=== PATIENT | female | born 1985 | race American Indian/Alaskan Native ===

== ENCOUNTER 2021-07-13 07:55 | Emergency (ER) | payer SELFPAY ==
[2021-07-13] MEDS ORDERED: HYDROcodone/ACETAMINOPHEN 5-325 MG TAB PO ONE (08:25)
--- NOTE | 2021-07-13 08:31 | Emergency Department Report ---
HPI - General Chief Complaint: Extremity Injury, Lower Time Seen by Provider: 07/13/21 08:18 - HPI HPI: MSE 5 Patient is a 36-year-old female present with chief complaint of right foot and ankle pain after fall. Patient states this morning she fell down 3 stairs injuring her right foot and ankle. Patient denies loss of consciousness. Patient only complains of pain in the right foot and ankle and gives her pain a score of 10/10. LMP 07/08/2021 ED Past Medical Hx - Past Medical History Previous Medical History?: No - Surgical History Past Surgical History?: No - Family History Family history: no significant - Social History Smoking Status: Current Every Day Smoker (1/3 pack/day) Substance Use Type: None (Denies illicit drug use), Alcohol (Occasional) - Medications Home Medications: Home Medications Medication Instructions Recorded Confirmed Last Taken Type traMADoL [Ultram] 50 mg PO Q6HR PRN #10 tablet 07/13/21 Unknown Rx ED Review of Systems ROS: Stated complaint: SPRUNG ANKLE Other details as noted in HPI Constitutional: no symptoms reported Respiratory: no symptoms reported Endocrine: no symptoms reported Musculoskeletal: arthralgia Physical Exam - Physical Exam Physical Exam: GENERAL: The patient is well-developed well-nourished female sitting in wheelchair. To be in moderate discomfort. [] HEENT: Normocephalic. Atraumatic. Extraocular motions are intact. Patient has moist mucous membranes. NECK: Supple. Trachea midline CHEST/LUNGS: There is no respiratory distress noted. HEART/CARDIOVASCULAR: Regular. There is no tachycardia. 2+ right DP SKIN: There is no rash. There is swelling to the proximal portion of the dorsal right foot. There is no diaphoresis. NEURO: The patient is awake, alert, and oriented. The patient is cooperative. The patient has no focal neurologic deficits. The patient has normal speech. GCS MUSCULOSKELETAL: There is tenderness to palpation over the proximal portion of the dorsum of the right foot. Is mild tenderness to palpation of bilateral malleoli of the right ankle. ED Medical Decision Making - Radiology Data Radiology results: report reviewed (Right foot x-ray, right ankle x-ray), image reviewed (Right foot x-ray, right ankle x-ray) interpreted by me: Right foot x-ray-no acute fracture, no dislocation Right ankle x-ray-no acute fracture, no dislocation [address] [address] XRay Report Signed Patient: EH TALBOT MR#: [id number] : 1985 Acct:[id number] Age/Sex: 36 / F ADM Date: 07/13/21 Loc: ED Attending Dr: Ordering Physician: SARAI BARRIOS MD Date of Service: 07/13/21 Procedure(s): XR foot 3+V RT Accession Number(s): [id number] cc: SARAI BARRIOS MD Fluoro Time In Minutes: RIGHT ANKLE 3 VIEWS INDICATION: Pain after fall down steps. COMPARISON: None. IMPRESSION: No acute osseous or soft tissue abnormality. No significant DJD. RIGHT FOOT 3 VIEWS INDICATION: Pain after fall down steps. COMPARISON: None. IMPRESSION: No acute osseous or soft tissue abnormality. No significant DJD. Signer Name: Nathan Do Jr, MD Signed: 07/13/2021 8:58 AM Workstation Name: [id number] Transcribed By: TTR Dictated By: NATHAN DO JR, MD Electronically Authenticated By: NATHAN DO JR, MD Signed Date/Time: 07/13/21857 DD/ 6 TD/TT: [address] [address] XRay Report Signed Patient: EH TALBOT MR#: [id number] : 1985 Acct:[id number] Age/Sex: 36 / F ADM Date: 07/13/21 Loc: ED Attending Dr: Ordering Physician: SARAI BARRIOS MD Date of Service: 07/13/21 Procedure(s): XR ankle 3+V RT Accession Number(s): [id number] cc: SARAI BARRIOS MD Fluoro Time In Minutes: RIGHT ANKLE 3 VIEWS INDICATION: Pain after fall down steps. COMPARISON: None. IMPRESSION: No acute osseous or soft tissue abnormality. No significant DJD. RIGHT FOOT 3 VIEWS INDICATION: Pain after fall down steps. COMPARISON: None. IMPRESSION: No acute osseous or soft tissue abnormality. No significant DJD. Signer Name: Nathan Do Jr, MD Signed: 07/13/2021 8:58 AM Workstation Name: [id number] Transcribed By: TTR Dictated By: NATHAN DO JR, MD Electronically Authenticated By: NATHAN DO JR, MD Signed Date/Time: 07/13/21857 DD/ 6 TD/TT: Print Cancel - Differential Diagnosis Foot contusion, ankle sprain, foot fracture, ankle fracture Critical care attestation.: If time is entered above; I have spent that time in minutes in the direct care of this critically ill patient, excluding procedure time. ED Disposition Clinical Impression: Contusion of right foot, Right ankle sprain Disposition: HOME / SELF CARE / HOMELESS Is pt being admited?: No Does the pt Need Aspirin: No Condition: Stable Instructions: Ankle Sprain, Foot Contusion, [id number] Additional Instructions: Return to the emergency department should you develop worsening symptoms, inability to tolerate food or liquids, high fever or any other concerns Prescriptions: traMADoL [Ultram] 50 mg PO Q6HR PRN #10 tablet PRN Reason: Pain Referrals: PRIMARY MD FAY [Primary Care Provider] - 3-5 Days CHATO ROBERTSON MD [Staff Physician] - 3-5 Days (Dr. Robertson is an orthopedic surgeon. Please follow-up with him for further evaluation) Time of Disposition: 09:09
--- NOTE | 2021-07-13 09:03 | XRay Report ---
RIGHT ANKLE 3 VIEWS INDICATION: Pain after fall down steps. COMPARISON: None. IMPRESSION: No acute osseous or soft tissue abnormality. No significant DJD. RIGHT FOOT 3 VIEWS INDICATION: Pain after fall down steps. COMPARISON: None. IMPRESSION: No acute osseous or soft tissue abnormality. No significant DJD. Signer Name: Nathan Do Jr, MD Signed: 07/13/2021 8:58 AM Workstation Name: [id number]
[2021-07-13 09:32] VITALS: BP 114/72
== END 2021-07-13 09:34 | disposition home or self-care (01) ==
LOC: ED 07:55
DX: S93.401A Sprain of unspecified ligament of right ankle, initial encounter (principal); F17.200 Nicotine dependence, unspecified, uncomplicated; W10.9XXA Fall (on) (from) unspecified stairs and steps, initial encounter; Y93.89 Activity, other specified; Y92.89 Other specified places as the place of occurrence of the external cause; Y99.8 Other external cause status
CPT/HCPCS: 99283